=== PATIENT | female | born 1940 | race Caucasian/White ===

== ENCOUNTER 2018-09-17 13:05 | Inpatient (IN) | payer OTHER, BC ==
[~2018-09-17] VITALS: Ht 152.4 cm; Wt 51.7 kg
[2018-09-17 13:17] VITALS: BP_SYST 131
[2018-09-17] MEDS ORDERED: ASPIRIN 81 MG TAB.CHEW PO ONE (13:30)
[2018-09-17 13:50] LABS: ANION GAP 14 (5-15); CHLORIDE 99 mmol/L (98-107); CREATININE 0.75 mg/dL (0.55-1.30); GLUCOSE 108 mg/dL (70-99); POTASSIUM 3.6 mmol/L (3.5-5.1); SODIUM SERUM 135 mmol/L (136-145); UREA NITROGEN, BLOOD 18 mg/dL (8-21)
[2018-09-17 13:54] LABS: PROTHROMBIN TIME 10.4 SECS (9.5-12.5)
[2018-09-17 13:55] LABS: ALANINE AMINOTRANSFERASE 15 U/L (12-78); ALBUMIN 3.7 g/dL (3.4-4.8); ASPARTATE AMINOTRANSFERASE 15 U/L (10-37); HEMATOCRIT 44.8 % (36-48); HEMOGLOBIN 14.9 g/dL (12.0-16.0); MEAN CORPUSCULAR VOLUME 92 fL (79.0-98.0); RED BLOOD CELL COUNT(AUTO) 4.86 MIL/uL (4.2-6.2); TOTAL BILIRUBIN 0.7 mg/dL (0.0-1.0); WHITE BLOOD COUNT (AUTO) 11.7 K/uL (4.8-10.8)
[2018-09-17 13:56] LABS: MEAN CORPUSCULAR HEMOGLOBIN 31 pg (27-31); MEAN CORPUSCULAR HGB CONC 33 % (32-36); PLATELET COUNT (AUTO) 313 K/uL (130-430); RED CELL DISTRIBUTION WIDTH 12.1 % (9.0-15.0)
[2018-09-17 14:16] LABS: BAND % (MANUAL) 4 % (0-6); BASOPHILS % (MANUAL) 0 % (0-2); EOSINOPHILS % (MANUAL) 0 % (0-7); LYMPHOCYTES % (MANUAL) 16 % (20-46); MONOCYTES % (MANUAL) 4 % (0-11)
[2018-09-17 15:29] LABS: BILIRUBIN,URINE NEGATIVE (NEGATIVE); BLOOD, URINE NEGATIVE (NEGATIVE); CLARITY/URINE CLEAR (CLEAR); COLOR,URINE YELLOW (YELLOW); GLUCOSE,URINE NEGATIVE (NEGATIVE); KETONES,URINE 2+ (NEGATIVE); LEUKOCYTE ESTERASE ,URINE NEGATIVE (NEGATIVE); NITRITE, URINE NEGATIVE (NEGATIVE); PROTEIN URINE NEGATIVE (NEGATIVE); UROBILINOGEN,URINE 0.2 (0.2-1.0)
[2018-09-17] MEDS ORDERED: LORazepam 2 MG/ML VIAL IVP PRN (16:15)
[2018-09-17] MEDS ORDERED: ONDANSETRON HCL 4 MG/2 ML VIAL IVP PRN (16:15)
[2018-09-17] MEDS ORDERED: MORPHINE 4 MG/ML INJ. SYRINGE IVP PRN (16:15)
[2018-09-17] MEDS ORDERED: MUPIROCIN 2% TOPICAL OINTMENT 22 GM NS PRN (16:15)
[2018-09-17] MEDS ORDERED: MAGNESIUM SULFATE 50 ML IV PRN (16:15)
[2018-09-17] MEDS ORDERED: POTASSIUM CHLORIDE 20 MEQ TAB.PRT.SR PO PRN (16:15)
[2018-09-17] MEDS ORDERED: KETO60CR2 TP (16:16)
[2018-09-17] MEDS ORDERED: TRIA1KIT12 TP (16:16)
[2018-09-17 17:50] VITALS: BP_SYST 123
[2018-09-17] MEDS: NACL 0.9% 1,000 ML IV SCH (17:51)
[2018-09-18 00:12] VITALS: BP_SYST 130
[2018-09-18 06:23] LABS: ANION GAP 16 (5-15); CALCIUM 8.8 mg/dL (8.4-11.0); CHLORIDE 100 mmol/L (98-107); GLUCOSE 119 mg/dL (70-99); POTASSIUM 3.5 mmol/L (3.5-5.1); SODIUM SERUM 137 mmol/L (136-145); UREA NITROGEN, BLOOD 15 mg/dL (8-21)
[2018-09-18 06:31] LABS: PHOSPHORUS 3.6 mg/dL (2.7-4.5)
[2018-09-18 06:35] LABS: BASOPHILS # (AUTO) 0.1 K/uL (0.0-0.2); BASOPHILS % (AUTO) 0.5 % (0.0-2.0); EOSINOPHILS % (AUTO) 0.2 % (0.0-4.0); HEMATOCRIT 43.1 % (36-48); HEMOGLOBIN 14.5 g/dL (12.0-16.0); LYMPHOCYTES # (AUTO) 1.3 K/uL (1.0-5.5); LYMPHOCYTES % (AUTO) 10.1 % (20.5-51.5); MEAN CORPUSCULAR HEMOGLOBIN 31 pg (27-31); MEAN CORPUSCULAR HGB CONC 34 % (32-36); MEAN CORPUSCULAR VOLUME 91 fL (79.0-98.0); MONOCYTES # (AUTO) 1.5 K/uL (0.0-1.0); MONOCYTES % (AUTO) 11.4 % (1.7-9.3); NEUTROPHILS # (AUTO) 10.1 K/uL (1.8-7.7); NEUTROPHILS % (AUTO) 77.8 % (40.0-70.0); PLATELET COUNT (AUTO) 293 K/uL (130-430); RED BLOOD CELL COUNT(AUTO) 4.73 MIL/uL (4.2-6.2)
[2018-09-18 08:00] VITALS: BP_SYST 126
[2018-09-18] MEDS: ATORVASTATIN 20 MG TABLET PO SCH (08:46)
[2018-09-18] MEDS: ENOXAPARIN SODIUM 30 MG/0.3 ML SYRINGE SUBCUT SCH (08:47)
[2018-09-18] MEDS: ACETAMINOPHEN 325 MG TABLET PO PRN ×2 (08:48→15:36)
[2018-09-18] MEDS: ASPIRIN 81 MG TAB.CHEW PO SCH (08:48)
[2018-09-18 11:32] VITALS: BP_SYST 118
[2018-09-18] MEDS: NACL 0.9% 1,000 ML IV SCH ×2 (12:09→18:47)
[2018-09-18] MEDS ORDERED: cefTRIAXone 1 GM in D5W 50 ML IV SCH (13:30)
[2018-09-18 15:59] VITALS: BP_SYST 112
[2018-09-18 19:12] LABS: TRIGLYCERIDES 79 mg/dL (30-150)
[2018-09-18 19:13] LABS: CHOLESTEROL 249 mg/dL (<200); HDL CHOLESTEROL 51 mg/dL (>55); LDL CHOLESTEROL 176 mg/dL (<100)
[2018-09-18 19:55] VITALS: BP_SYST 145
[2018-09-18] MEDS: DOCUSATE SODIUM 100 MG CAPSULE PO PRN (20:37)
[2018-09-18 23:09] VITALS: BP_SYST 113
[2018-09-18] MEDS: HYDROcodone/ACETAMIN 5-325 MG TAB (NORCO/ VICODIN) PO PRN (23:23)
[2018-09-19 06:46] LABS: BASOPHILS # (AUTO) 0.1 K/uL (0.0-0.2); BASOPHILS % (AUTO) 0.8 % (0.0-2.0); EOSINOPHILS # (AUTO) 0.1 K/uL (0.0-0.4); EOSINOPHILS % (AUTO) 1.6 % (0.0-4.0); HEMATOCRIT 35.7 % (36-48); HEMOGLOBIN 12.2 g/dL (12.0-16.0); LYMPHOCYTES # (AUTO) 1.4 K/uL (1.0-5.5); LYMPHOCYTES % (AUTO) 15.7 % (20.5-51.5); MEAN CORPUSCULAR HEMOGLOBIN 31 pg (27-31); MEAN CORPUSCULAR HGB CONC 34 % (32-36); MEAN CORPUSCULAR VOLUME 92 fL (79.0-98.0); MONOCYTES % (AUTO) 10.8 % (1.7-9.3); NEUTROPHILS # (AUTO) 6.5 K/uL (1.8-7.7); NEUTROPHILS % (AUTO) 71.1 % (40.0-70.0); PLATELET COUNT (AUTO) 227 K/uL (130-430); RED CELL DISTRIBUTION WIDTH 12.1 % (9.0-15.0)
[2018-09-19 06:58] LABS: WHITE BLOOD COUNT (AUTO) 9.1 K/uL (4.8-10.8)
[2018-09-19 07:02] LABS: ANION GAP 11 (5-15); CHLORIDE 104 mmol/L (98-107); CREATININE 0.53 mg/dL (0.55-1.30); GLUCOSE 106 mg/dL (70-99); POTASSIUM 3.3 mmol/L (3.5-5.1); SODIUM SERUM 138 mmol/L (136-145); UREA NITROGEN, BLOOD 12 mg/dL (8-21)
[2018-09-19 07:08] LABS: PHOSPHORUS 2.8 mg/dL (2.7-4.5)
[2018-09-19 08:00] VITALS: BP_SYST 107
[2018-09-19] MEDS ORDERED: cefTRIAXone 1 GM in D5W 50 ML IV SCH (09:00)
[2018-09-19] MEDS: ATORVASTATIN 20 MG TABLET PO SCH (09:16)
[2018-09-19] MEDS: ENOXAPARIN SODIUM 30 MG/0.3 ML SYRINGE SUBCUT SCH (09:16)
[2018-09-19] MEDS: ASPIRIN 81 MG TAB.CHEW PO SCH (09:16)
[2018-09-19 12:26] VITALS: BP_SYST 109
[2018-09-19 16:53] VITALS: BP_SYST 116
[2018-09-19] MEDS: NACL 0.9% 1,000 ML IV SCH (17:31)
[2018-09-19 20:00] VITALS: BP_SYST 111
[2018-09-20 00:20] VITALS: BP_SYST 103
[2018-09-20] MEDS: HYDROcodone/ACETAMIN 5-325 MG TAB (NORCO/ VICODIN) PO PRN (00:22)
[2018-09-20 06:29] LABS: BASOPHILS % (AUTO) 0.4 % (0.0-2.0); EOSINOPHILS # (AUTO) 0.2 K/uL (0.0-0.4); EOSINOPHILS % (AUTO) 3.3 % (0.0-4.0); HEMATOCRIT 33.8 % (36-48); HEMOGLOBIN 11.2 g/dL (12.0-16.0); LYMPHOCYTES # (AUTO) 1.6 K/uL (1.0-5.5); LYMPHOCYTES % (AUTO) 21.6 % (20.5-51.5); MEAN CORPUSCULAR HEMOGLOBIN 30 pg (27-31); MEAN CORPUSCULAR HGB CONC 33 % (32-36); MEAN CORPUSCULAR VOLUME 91 fL (79.0-98.0); MONOCYTES # (AUTO) 0.9 K/uL (0.0-1.0); MONOCYTES % (AUTO) 12.7 % (1.7-9.3); NEUTROPHILS # (AUTO) 4.6 K/uL (1.8-7.7); PLATELET COUNT (AUTO) 216 K/uL (130-430); RED BLOOD CELL COUNT(AUTO) 3.71 MIL/uL (4.2-6.2); RED CELL DISTRIBUTION WIDTH 12.4 % (9.0-15.0); WHITE BLOOD COUNT (AUTO) 7.3 K/uL (4.8-10.8)
[2018-09-20 06:49] LABS: ANION GAP 8 (5-15); CHLORIDE 104 mmol/L (98-107); CREATININE 0.44 mg/dL (0.55-1.30); GLUCOSE 98 mg/dL (70-99); PHOSPHORUS 2.9 mg/dL (2.7-4.5); POTASSIUM 3.9 mmol/L (3.5-5.1); SODIUM SERUM 135 mmol/L (136-145); UREA NITROGEN, BLOOD 8 mg/dL (8-21)
[2018-09-20 08:00] VITALS: BP_SYST 123
[2018-09-20] MEDS: DOCUSATE SODIUM 100 MG CAPSULE PO PRN (08:48)
[2018-09-20] MEDS: ASPIRIN 81 MG TAB.CHEW PO SCH (08:48)
[2018-09-20] MEDS: ATORVASTATIN 20 MG TABLET PO SCH (08:48)
[2018-09-20] MEDS: ENOXAPARIN SODIUM 30 MG/0.3 ML SYRINGE SUBCUT SCH (08:50)
[2018-09-20] MEDS ORDERED: ASPIRIN 81 MG TABLET(ECOTRIN) PO SCH (09:00)
[2018-09-20 12:46] VITALS: BP_SYST 121
[2018-09-20 16:17] VITALS: BP_SYST 128
[2018-09-20 18:02] VITALS: BP_SYST 118
[2018-09-20] MEDS ORDERED: ATORVASTATIN 20 MG TABLET PO SCH (21:00)
== END 2018-09-20 20:10 | DRG 64 ==
LOC: SED 13:05 → STU 16:09
PROVIDERS: ADMIT Family Medicine; ATTEND Family Medicine
DX: I63.9 Cerebral infarction, unspecified (principal); R65.11 Systemic inflammatory response syndrome (SIRS) of non-infectious origin with acute organ dysfunction; G81.94 Hemiplegia, unspecified affecting left nondominant side; E87.1 Hypo-osmolality and hyponatremia; D72.828 Other elevated white blood cell count; G90.9 Disorder of the autonomic nervous system, unspecified; E87.6 Hypokalemia; Z60.2 Problems related to living alone; E78.5 Hyperlipidemia, unspecified; R21 Rash and other nonspecific skin eruption; Z85.89 Personal history of malignant neoplasm of other organs and systems; Z90.710 Acquired absence of both cervix and uterus; Z90.49 Acquired absence of other specified parts of digestive tract
CPT/HCPCS: 36415; 70450-TC; 70551; 71045; 80048; 80053; 80061; 81003; 82550-TC; 83036; 83605; 83735-TC; 83880; 84100-TC; 84484; 85007; 85025; 85027; 85610-TC; 85730-TC; 87040-TC; 87081; 93005; 93880; 97110-GP; 97530-GP; 99285; G0378; J0696; J1650; J7030; J7060

== ENCOUNTER 2023-03-21 11:29 | Emergency (ER) | payer BC, OTHER ==
[~2023-03-21] VITALS: Ht 152.4 cm; Wt 69.4 kg
[~2023-03-21 11:29] MED LIST: KETO60CR2 TP; TRIA1KIT12 TP
[2023-03-21 11:30] VITALS: BP_SYST 143; PULSE 91; RESP 18; TEMP 98; O2SAT 94
--- NOTE | 2023-03-21 11:30 | NUR ---
Placed in room 03 . Placed on cardiac exercise specialist, blood pressure machine and pulse oximeter. To gown for exam. Side rails up. Report given to MIMI BOSCH.
--- NOTE | 2023-03-21 12:00 | NUR ---
Patient seen by MD. Labs, ECG and radiology orders completed. Awaitng test results at this time.
[2023-03-21] MEDS ORDERED: ASPIRIN 81 MG TAB.CHEW PO ONE (12:15)
[2023-03-21 12:53] LABS: BASOPHILS % (AUTO) 0.7 % (0.0-2.0); EOSINOPHILS # (AUTO) 0.1 K/uL (0.0-0.4); EOSINOPHILS % (AUTO) 2.7 % (0.0-4.0); HEMATOCRIT 43.4 % (36-48); HEMOGLOBIN 14.2 g/dL (12.0-16.0); LYMPHOCYTES # (AUTO) 1.5 K/uL (1.0-5.5); LYMPHOCYTES % (AUTO) 34.2 % (20.5-51.5); MEAN CORPUSCULAR HEMOGLOBIN 30 pg (27-31); MEAN CORPUSCULAR HGB CONC 33 % (32-36); MEAN CORPUSCULAR VOLUME 90 fL (79.0-98.0); MONOCYTES # (AUTO) 0.7 K/uL (0.0-1.0); MONOCYTES % (AUTO) 15.8 % (1.7-9.3); NEUTROPHILS # (AUTO) 2.1 K/uL (1.8-7.7); NEUTROPHILS % (AUTO) 46.6 % (40.0-70.0); PLATELET COUNT (AUTO) 258 K/uL (130-430); RED BLOOD CELL COUNT(AUTO) 4.83 MIL/uL (4.2-6.2); RED CELL DISTRIBUTION WIDTH 13.9 % (9.0-15.0); WHITE BLOOD COUNT (AUTO) 4.4 K/uL (4.8-10.8)
--- NOTE | 2023-03-21 13:00 | NUR ---
Patient resting with pleasant affect. Sister still at bedside. MD indicated that something was found on CT and would like to admit patient for further evaluation. Patient stated she wants to go home. MD asked patient and sister to discuss and decide when they would like to do, either stay in hospital or leave AMA.
[2023-03-21 13:06] LABS: ANION GAP 9 (5-15); CALCIUM 8.9 mg/dL (8.4-11.0); CHLORIDE 105 mmol/L (98-107); GLUCOSE 92 mg/dL (74-106); UREA NITROGEN, BLOOD 13 mg/dL (8-21)
[2023-03-21 13:13] LABS: ALANINE AMINOTRANSFERASE 4 U/L (12-78); ALBUMIN 3.6 g/dL (3.4-4.8); ASPARTATE AMINOTRANSFERASE 23 U/L (10-37); TOTAL BILIRUBIN 0.5 mg/dL (0.0-1.0)
--- NOTE | 2023-03-21 15:00 | NUR ---
Patient does not wish to proceed with medical care recommended by Dr. Hart. Patient given information related to possible complications, up to and including , which could occur as a result of leaving hospital at this time. Patient verbalizes understanding of risks involved leaving against medical advice. Patient has signed AMA form.
== END 2023-03-21 15:00 | disposition left against medical advice (07) ==
LOC: SED 11:29
DX: R07.9 Chest pain, unspecified (principal); Z85.42 Personal history of malignant neoplasm of other parts of uterus; Z79.899 Other long term (current) drug therapy
CPT/HCPCS: 36415; 71045; 80053; 83880; 84484; 85025; 93005; 99285

== ENCOUNTER 2023-07-08 12:48 | Emergency (ER) | payer BC, OTHER ==
[~2023-07-08] VITALS: Ht 152.4 cm; Wt 61.2 kg
[2023-07-08 13:42] VITALS: BP_SYST 110; PULSE 74; RESP 16; TEMP 96.8; O2SAT 95
[2023-07-08 17:18] LABS: BASOPHILS % (AUTO) 0.5 % (0.0-2.0); EOSINOPHILS # (AUTO) 0.2 K/uL (0.0-0.4); EOSINOPHILS % (AUTO) 2.9 % (0.0-4.0); HEMATOCRIT 43.7 % (36-48); HEMOGLOBIN 14.3 g/dL (12.0-16.0); LYMPHOCYTES # (AUTO) 1.7 K/uL (1.0-5.5); LYMPHOCYTES % (AUTO) 30.3 % (20.5-51.5); MEAN CORPUSCULAR HEMOGLOBIN 30 pg (27-31); MEAN CORPUSCULAR HGB CONC 33 % (32-36); MEAN CORPUSCULAR VOLUME 90 fL (79.0-98.0); MONOCYTES # (AUTO) 0.6 K/uL (0.0-1.0); MONOCYTES % (AUTO) 11.7 % (1.7-9.3); NEUTROPHILS % (AUTO) 54.6 % (40.0-70.0); PLATELET COUNT (AUTO) 285 K/uL (130-430); RED BLOOD CELL COUNT(AUTO) 4.87 MIL/uL (4.2-6.2); RED CELL DISTRIBUTION WIDTH 14.3 % (9.0-15.0); WHITE BLOOD COUNT (AUTO) 5.5 K/uL (4.8-10.8)
[2023-07-08 17:23] LABS: ANION GAP 9 (5-15); CALCIUM 9.2 mg/dL (8.4-11.0); CARBON DIOXIDE 26 mmol/L (23-29); CHLORIDE 103 mmol/L (98-107); CREATININE 0.93 mg/dL (0.55-1.30); GLUCOSE 108 mg/dL (74-106); POTASSIUM 3.9 mmol/L (3.5-5.1); SODIUM SERUM 138 mmol/L (136-145); UREA NITROGEN, BLOOD 22 mg/dL (8-21)
[2023-07-08 21:33] LABS: BILIRUBIN,URINE NEGATIVE (NEGATIVE); BLOOD, URINE 2+ (NEGATIVE); COLOR,URINE YELLOW (YELLOW); GLUCOSE,URINE NEGATIVE (NEGATIVE); KETONES,URINE 1+ (NEGATIVE); NITRITE, URINE POSITIVE (NEGATIVE); PROTEIN URINE 1+ (NEGATIVE); UROBILINOGEN,URINE 0.2 (0.2-1.0)
[2023-07-08 21:39] LABS: BACTERIA,URINE MODERATE /HPF (None Seen); CLARITY/URINE HAZY (CLEAR); LEUKOCYTE ESTERASE ,URINE 2+ (NEGATIVE); RBC,URINE 0-3 /HPF (0-3); WBC,URINE 20-50 /HPF (0-3)
[2023-07-08 21:40] LABS: MUCUS,URINE None Seen /LPF (None Seen)
[2023-07-08] MEDS ORDERED: NITR-85 PO (22:12)
[2023-07-08] MEDS ORDERED: LIDOCAINE JELLY 5 ML TUBE MM ONE (22:30)
[2023-07-08] MEDS ORDERED: LIDOCAINE 2% JELLY UROJECT 10 ML MM ONE (22:33)
[2023-07-08 22:47] VITALS: BP_SYST 130; PULSE 71; RESP 16; TEMP 96.8; O2SAT 95
== END 2023-07-08 22:47 | disposition home or self-care (01) ==
LOC: SED 12:48
DX: N39.0 Urinary tract infection, site not specified (principal); R30.0 Dysuria; R21 Rash and other nonspecific skin eruption; Z85.42 Personal history of malignant neoplasm of other parts of uterus; Z79.899 Other long term (current) drug therapy
CPT/HCPCS: 36415; 80048; 81000; 81001; 81015; 85025; 87086; 99283